=== PATIENT | female | born 1955 | race Caucasian/White ===

== ENCOUNTER 2024-11-12 09:51 | Observation (INO) ==
--- NOTE | 2024-11-12 10:40 | XRay Report ---
XR chest 1V portable CLINICAL HISTORY: weakness COMPARISON STUDY: Chest radiograph October 21, 2024. FINDINGS: Right humeral internal fixation hardware is partially imaged. Lung volumes are diminished. Left basilar opacity favors atelectasis or epicardial fat pad. There is no pneumothorax or definite p leural effusion. No consolidation is present. There is no evidence for pulmonary edema. Cardiomediast inal silhouette is stable allowing for hypoventilatory study. IMPRESSION: 1. No acute cardiopulmonary findings. 2. Low lung volumes. ACT 112: Negative or not required by law. Electronically signed by: Khai Duffy M.D. 11/12/2024 10:39 AM
[2024-11-12] MEDS: OPTIRAY 320 100ml IV ONE (11:08)
--- NOTE | 2024-11-12 11:23 | CT Scan Report ---
CT head/brain wo con CLINICAL HISTORY: altered. TECHNIQUE: Multiple axial CT images of the head were obtained without contrast. A dose lowering tech nique was utilized adhering to the principles of ALARA. COMPARISON: None FINDINGS: There is mild motion artifact. No intracranial hemorrhage seen. No mass effect, midline jhoan ft, or hydrocephalus. No skull fracture seen. There is a small mucous retention cyst in the right max illary sinus. Otherwise the visualized paranasal sinuses and mastoid air cells are clear. IMPRESSION: No acute findings. ACT 112: Negative or not required by law. The above report was generated using voice recognition software. It may contain grammatical, syntax o r spelling errors. Electronically signed by: Gio Damon M.D. 11/12/2024 11:21 AM
--- NOTE | 2024-11-12 11:27 | CT Scan Report ---
CT lumbar spine w con CLINICAL HISTORY: fall, back pain COMPARISON STUDY: None FINDINGS: There is motion artifact. Posterior metallic fusion at L4-5 shows no gross hardware complic ation. There is diffuse degenerative disc disease most severe at L2-3. There is mild retrolisthesis o f L2 on 3. There is grade 1 anterolisthesis of L5 on S1. No fracture seen. There is mild right convex lumbar scoliosis. IMPRESSION: No lumbar spine fracture seen. ACT 112: Negative or not required by law. Electronically signed by: Gio Damon M.D. 11/12/2024 11:25 AM
--- NOTE | 2024-11-12 11:34 | CT Scan Report ---
ABDOMEN AND PELVIS CT WITH IV CONTRAST CT DOSE: 2085 HISTORY: abd pain TECHNIQUE: Multiaxial CT images of the abdomen and pelvis were performed following the IV administrat ion of 90 cc of Optiray, A dose lowering technique was utilized adhering to the principles of ALARA. COMPARISON STUDY: None FINDINGS: There is mild dependent atelectasis in the lung bases. ABDOMEN: There are a few scattered small cysts in the liver. Gallbladder is not visualized. Spleen, a nd adrenal glands are unremarkable. Kidneys show no hydronephrosis or calculi. There is a small exoph ytic cyst posterior lateral left kidney. There is a small cystic finding measuring 1.2 cm at the ante rior pancreatic neck. Otherwise the pancreas is unremarkable. There are mild atherosclerotic calcific ations. No abdominal aortic aneurysm. Pelvis: Uterus and adnexa are unremarkable. Urinary bladder is mildly distended. There is mild retain ed stool. No significant colonic diverticulosis or acute diverticulitis seen. No bowel inflammation o r obstruction. No free fluid, free air, or abscess. No enlarged adenopathy. Osseous structures: There is osteopenia. No acute osseous findings. IMPRESSION: 1. No acute findings. 2. Small cystic finding at the pancreatic neck likely represents pancreatic cyst or intraductal papil galo mucinous tumor. Follow-up abdominal CT recommended in 6-12 months. ACT 112: Positive. There are findings on this exam that require communication between the performing entity and the patient following Patient Test Result Information Act ([place] Act 112) guidelines. The above report was generated using voice recognition software. It may contain grammatical, syntax o r spelling errors. Electronically signed by: Gio Damon M.D. 11/12/2024 11:31 AM
[2024-11-12 11:37] LABS: Base Excess VBG 2.4 mEq/L; HCO3 VBG 30 mmol/L; Oxygen Saturation VBG < 60.0 %; PCO2 VBG 58 mmHg (38-50); PO2 VBG 29 mmHg; pH VBG 7.32 (7.36-7.41)
[2024-11-12 11:45] LABS: Basophils # (auto) 0.02 K/uL (0.00-0.20); Basophils % (auto) 0.2 %; Eosinophils # (auto) 0.01 K/uL (0.00-0.50); Eosinophils % (auto) 0.1 %; Hematocrit (blood only) 39.3 % (37.0-47.0); Hemoglobin 12.9 g/dl (12.0-16.0); Immature Granulocytes # (auto) 0.05 K/uL (0.01-0.20); Immature Granulocytes % (auto) 0.5 %; Lymphocytes # (auto) 0.86 K/uL (1.20-3.40); Lymphocytes % (auto) 8.9 %; Mean Corpuscular Hemoglobin 29.8 pg (25.0-34.0); Mean Corpuscular Hgb Conc 32.8 g/dL (32.0-36.0); Mean Corpuscular Volume 90.8 fL (80.0-100.0); Mean Platelet Volume 11.4 fL (9.4-12.4); Monocytes # (auto) 0.65 K/uL (0.11-0.59); Monocytes % (auto) 6.7 %; Neutrophils # (auto) 8.05 K/uL (1.40-6.50); Neutrophils % (auto) 83.6 %; Platelet Count 208 K/uL (130-400); RDW Coefficient of Variation 13.3 % (11.5-14.5); RDW Standard Deviation 43.5 fL (36.4-46.3); Red Blood Count 4.33 M/uL (4.20-5.40); White Blood Count 9.64 K/ul (4.8-10.8)
--- NOTE | 2024-11-12 11:56 | XRay Report ---
XR pelvis 1-2V routine, XR femur LT 2V routine CLINICAL HISTORY: fall COMPARISON: None FINDINGS: No fracture or dislocation seen at the pelvis or hips. No fracture or dislocation seen at the left femur. There is a small area of patchy sclerosis at the proximal left tibia which likely rep resents low-grade chondroid lesion or old bone infarction. IMPRESSION: No fracture seen. ACT 112: Negative or not required by law. Electronically signed by: Gio Damon M.D. 11/12/2024 11:55 AM
[2024-11-12 12:07] LABS: Albumin Globulin Ratio 1.3 (0.9-2); Albumin Level 3.6 gm/dl (3.4-5.0); BUN Creatinine Ratio 18.9 (10-20); Bilirubin,Total 1.2 mg/dl (0.2-1.0); Calcium 9.3 mg/dl (8.6-10.3); Creatinine Clr Calc Pharmacy 47.4 ml/min; Globulin 2.7 gm/dl (2.5-4.0); Magnesium 1.6 mg/dl (1.7-2.4); Potassium 3.5 mmol/L (3.5-5.1); Total Protein 6.3 gm/dl (6.0-8.3)
[2024-11-12 12:11] LABS: Troponin I High Sensitivity 13.7 pg/ml (0-14)
--- NOTE | 2024-11-12 12:11 | Emergency Department Note ---
Impression & Plan Altered mental status, Hypomagnesemia, Acute dehydration, Acute UTI, Fall, Elevated lactic acid level ED Provider Note NAME: DEB ZAMUDIO AGE: 69 SEX: F : 1955 ARRIVES VIA: Walk-In INFORMANT: [Patient][] ED PROVIDER(S): [Dav Stewart MD] CHIEF COMPLAINT: Altered mental state HISTORY OF PRESENT ILLNESS: The patient is a 69-year-old female who presents to the ER from the surgical center for an altered mental state. The patient was to have lumbar spinal surgery today but, when she arrived, she was confused and there was concern for her ability to undergo the surgery. She was referred to the ER. The patient apparently did have a UTI a few weeks ago, this was treated. The noticed that her urine was very dark though this morning when she first went to the bathroom. The has noticed some confusion and some agitation at times the last few days. Things were worse today. The patient did fall several weeks ago. She still has bruising to the left thigh from the fall although, she has been able to ambulate with a walker. PMHx/PSHx/Social Hx: See Below PHYSICAL EXAM: GENERAL: Patient is in no acute distress. HEENT: No acute trauma, normocephalic atraumatic, mucous membranes dry, no nasal congestion. NECK: No stridor, no adenopathy, no meningismus, trachea is midline. LUNGS: Clear to auscultation bilaterally, no wheeze, no rhonchi, breath sounds equal. HEART: Without murmurs gallops or rubs, regular rate and rhythm. ABDOMEN: Soft, tender over the mid low abdomen, no distention, no peritonitis. EXTREMITIES: No cyanosis, full range of motion of all the joints without pain or difficulty. There is older contusion to the left thigh. NEUROLOGIC: Awake and alert, no acute motor or sensory deficits, no focal weakness. Somewhat agitated. SKIN: No jaundice, no diaphoresis. DIFFERENTIAL DIAGNOSIS: Intracranial bleeding, UTI, dehydration, electrolyte imbalance, CO2 retention, liver or renal failure, medication reaction, among others. EMERGENCY DEPARTMENT PROCEDURES: MEDICAL DECISION MAKING: There is no leukocytosis or concerning anemia. There is a normal platelet count. VBG does show a subtle respiratory acidosis but nothing of serious note. There was an elevation in the creatinine but this appears at baseline looking back at previous testing. Magnesium was low at 1.6. Lactic acid level was elevated which would indicate dehydration/potential sepsis. No worrisome liver enzyme elevation. The patient appeared to be in a euthyroid state. ECG showed a sinus rhythm, no ischemia or dysrhythmia. Cardiac enzyme testing x 1 is not consistent with acute cardiac injury. Urinalysis did show findings of infection. Urine tox was positive for opiates as well as benzodiazepines. Alcohol level was undetectable. Respiratory bio fire was negative. Chest film did not show pneumonia or CHF. Brain CT showed no acute bleed or mass effect. CT of the abdomen pelvis did not show any acute intra-abdominal process, no acute surgical process. Lumbar spine CT did not show any acute fracture. Films of the pelvis and left femur were performed, no fracture seen. Patient was clinically dehydrated and presented confused. She received IV saline for hydration. She was given IV magnesium and IV ceftriaxone as antibiotic coverage. The patient is clearly in need of a hospital stay. She is confused, likely from a combination of her UTI, dehydration and medication use. She is not safe for discharge home. I spoke with the patient and case management, the on-call hospitalist was consulted. Prior/Outside records/notes reviewed: Today's surgical note describing her presentation, their concerns and the ED referral. ECG per my interpretation: Indication was altered mental state. The ECG shows a normal sinus rhythm with a rate of 92. There is some nonspecific ST change. There is no ST elevation, no PVCs. The QTc is 482. Continuous Cardiac Monitoring per my interpretation: An order was placed for continuous cardiac monitoring. The monitor shows a rate of 103 with sinus tachycardia. Imaging/x-ray results per my interpretation: Chest x-ray does not show pneumonia or CHF. There is a poor inspiratory effort. Pelvis and left femur films do not show fracture. Chronic Medical/Social conditions affecting care: Advanced age. Care/Management discussed with: Case management, the on-call hospitalist. Level of care consideration(s): After review of the information above and other included data: --I believe the patient requires escalation of care to admission Critical Care Note: I have personally spent 51 minutes of critical care time in the direct management of this patient. This includes bedside care, interpretation of diagnostic studies, and testing, discussion with consultants, patient, and family members, and other required patient management activities. This 51 minutes is in excess of all separately billable procedures. DISPOSITION: Admission Past Med/Surg History Problem List (Updated 11/12/24 @ 16:06 by Dav Stewart MD) Elevated lactic acid level (Acute) Fall (Acute) Acute UTI (Acute) Acute dehydration (Acute) Hypomagnesemia (Acute) Altered mental status (Acute) Hypomagnesemia Lactic acid acidosis UTI (urinary tract infection) Encephalopathy acute Encounter for pre-operative examination Medical History Arthritis Fibromyalgia History of anesthesia reaction (2017) combative, confused x days after lumbar sx Depression Acid reflux controlled, stable per pt Parkinson disease possible - currently being evaluated by [facility] History of stroke 4-5 yrs ago incidental finding on scan, pt was unaware- [facility] - denies residual Sleep apnea CPAP Hx of ulcerative colitis remission x 18 years Anxiety Surgical History History of bilateral tubal ligation History of lumbar fusion (11/2016) L4-L5 History of open reduction and internal fixation (ORIF) procedure right arm x 2 Hx of cholecystectomy Hx of colonoscopy Hx of vein stripping left and right Social History Smoking Status: Never smoker Second Hand Exposure: No; Do You Dip or Chew Tobacco: No; Hx Alcohol Use: No Hx Substance Use: No Preferred Language: Thai Communication Ability: Effective Densitometer Reader Required: No Beliefs That Will Affect Care: None Current Living Situation: Spouse Feels Safe at Home: Yes Assistive Devices: Cane, CPAP, Denture - Upper, Glasses and Walker Allergies Allergies Allergy/AdvReac Type Severity Reaction Status Date / Time morphine AdvReac Unknown Agitated Verified 11/12/24 08:34 Home Meds Home Medications Medication Instructions Recorded Confirmed alprazolam 0.25 mg tablet (Xanax) 0.25 mg PO BID 10/14/24 11/12/24 cholecalciferol (vitamin D3) 125 125 mcg PO DAILY 10/14/24 11/12/24 mcg (5,000 unit) tablet (Vitamin D3) cyanocobalamin (vitamin B-12) 1,000 mcg PO DAILY 10/14/24 11/12/24 1,000 mcg tablet (Vitamin B-12) escitalopram oxalate 20 mg tablet 20 mg PO QAM 10/14/24 11/12/24 (Lexapro) furosemide 20 mg tablet (Lasix) 20 mg PO QAM 10/14/24 11/12/24 omega 6-euo-gub-fish oil 1,000 mg 1 cap PO DAILY 10/14/24 11/12/24 (120 mg-180 mg) capsule (Fish Oil) omeprazole 20 mg tablet,delayed 20 mg PO QAM 10/14/24 11/12/24 release pregabalin 150 mg capsule 150 mg PO BID 10/14/24 11/12/24 Results & Data (ED) Vital Signs Vital Signs - 24 hr 11/12/24 10:06 11/12/24 10:18 11/12/24 10:18 Temperature 36.6 C Temperature Source Oral Pulse Rate 96 H Pulse Rate [Apical] 96 H Respiratory Rate 17 23 Respiratory Effort / Characteristics Non-Labored Spontaneous Respiratory Depth Normal Respiratory Pattern Regular Blood Pressure 124/95 Blood Pressure [Left Arm] 124/95 Blood Pressure Mean 104 Blood Pressure Mean [Left Arm] 104 Pulse Oximetry 91 93 93 Oxygen Delivery Method Nasal Cannula Nasal Cannula Nasal Cannula Oxygen Flow Rate 2 2 2 Sepsis Recent Fever Within 48 Hours No Sepsis New/Unexplained Change in Mental Status No Sepsis Action Taken by Nursing No Action Required 11/12/24 10:35 11/12/24 10:35 11/12/24 12:17 Temperature Temperature Source Pulse Rate 103 H 106 H Pulse Rate [Apical] 89 Respiratory Rate 13 20 Respiratory Effort / Characteristics Respiratory Depth Respiratory Pattern Blood Pressure Blood Pressure [Left Arm] 118/79 Blood Pressure Mean Blood Pressure Mean [Left Arm] 92 Pulse Oximetry 94 96 Oxygen Delivery Method Nasal Cannula Nasal Cannula Oxygen Flow Rate 2 2 Sepsis Recent Fever Within 48 Hours Sepsis New/Unexplained Change in Mental Status Sepsis Action Taken by Nursing 11/12/24 14:14 11/12/24 14:29 Temperature Temperature Source Pulse Rate 83 Pulse Rate [Apical] 78 Respiratory Rate 15 Respiratory Effort / Characteristics Respiratory Depth Respiratory Pattern Blood Pressure Blood Pressure [Left Arm] 124/81 Blood Pressure Mean Blood Pressure Mean [Left Arm] 95 Pulse Oximetry 96 Oxygen Delivery Method Nasal Cannula Oxygen Flow Rate Sepsis Recent Fever Within 48 Hours Sepsis New/Unexplained Change in Mental Status Sepsis Action Taken by [facility] Medications Current Medication List: was personally reviewed by me Laboratory Data Attestation: I reviewed the patient's lab results. 11/12/24 11:25 11/12/24 11:25 Lab Results 11/12/24 11/12/24 11/12/24 Range/Units 11:25 11:35 12:40 WBC 9.64 (4.8-10.8) K/ul RBC 4.33 (4.20-5.40) M/uL Hgb 12.9 (12.0-16.0) g/dl Hct 39.3 (37.0-47.0) % MCV 90.8 (80.0-100.0) fL MCH 29.8 (25.0-34.0) pg MCHC 32.8 (32.0-36.0) g/dL RDW Std Deviation 43.5 (36.4-46.3) fL RDW Coeff of Angelita 13.3 (11.5-14.5) % Plt Count 208 (130-400) K/uL MPV 11.4 (9.4-12.4) fL Immature Gran % (Auto) 0.5 % Neut % (Auto) 83.6 % Lymph % (Auto) 8.9 % [place] % (Auto) 6.7 % Eos % (Auto) 0.1 % Baso % (Auto) 0.2 % Neut # (Auto) 8.05 H (1.40-6.50) K/uL Lymph # (Auto) 0.86 L (1.20-3.40) K/uL [place] # (Auto) 0.65 H (0.11-0.59) K/uL Eos # (Auto) 0.01 (0.00-0.50) K/uL Baso # (Auto) 0.02 (0.00-0.20) K/uL Immature Gran # (Auto) 0.05 (0.01-0.20) K/uL VBG pH 7.32 L (7.36-7.41) VBG pCO2 58 H (38-50) mmHg VBG pO2 29 mmHg VBG HCO3 30 mmol/L VBG O2 Saturation < 60.0 % VBG Base Excess 2.4 mEq/L Sodium 140 (136-145) mmol/L Potassium 3.5 (3.5-5.1) mmol/L Chloride 98 (98-107) mmol/L Carbon Dioxide 30 (21-32) mmol/L Anion Gap 12 H (3-11) BUN 24 H (6-23) mg/dl Creatinine 1.27 H (0.6-1.2) mg/dl Est Cr Clr Drug Dosing 47.4 ml/min eGFR 45.49 BUN/Creatinine Ratio 18.9 (10-20) Glucose 130 H (70-99(Fasting)) mg/dl Lactate 2.8 H* (0.4-2.0) mmol/L Calcium 9.3 (8.6-10.3) mg/dl Magnesium 1.6 L (1.7-2.4) mg/dl Total Bilirubin 1.2 H (0.2-1.0) mg/dl AST 14 (13-39) U/L ALT 7 (7-52) U/L Alkaline Phosphatase 78 (34-104) U/L Ammonia 21.0 (18-72) umol/L Troponin I High Sens 13.7 (0-14) pg/ml Total Protein 6.3 (6.0-8.3) gm/dl Albumin 3.6 (3.4-5.0) gm/dl Globulin 2.7 (2.5-4.0) gm/dl Albumin/Globulin Ratio 1.3 (0.9-2) TSH 0.683 (0.300-4.500) uIu/ml Urine Color Dark Yellow Urine Appearance Cloudy A (Clear) Urine pH 6.0 (4.5-7.5) Ur Specific [place] 1.030 (1.000-1.030) Urine Protein Trace H (Negative) Urine Glucose (UA) Negative (Negative) Urine Ketones 2+ H (Negative) Urine Blood 1+ H (Negative) Urine Nitrite Negative (Negative) Urine Bilirubin Negative (Negative) Urine Urobilinogen Negative (Negative) Ur Leukocyte Esterase 3+ H (Negative) Urine WBC (Auto) >50 H (0-5) /hpf Urine RBC (Auto) 6-10 H (0-2) /hpf U Hyaline Cast (Auto) 0-2 (0-2) /lpf U Epithel Cells (Auto) 0-2 (0-2) /hpf Urine Bacteria (Auto) 4+ H (None Seen) Urine Opiates Screen Pos H (Neg) Ur Methadone, Qual Neg (Neg) Urine Fentanyl Screen Neg (Neg) Urine Barbiturates Neg (Neg) Ur Phencyclidine (PCP) Neg (Neg) U Amphetamin/Meth Scrn Neg (Neg) MDMA (Ecstasy) Screen Neg (Neg) U Benzodiazepines Scrn Pos H (Neg) Ur Cocaine Metabolite Neg (Neg) U Marijuana (THC) Screen Neg (Neg) Ethyl Alcohol mg/dL < 10.0 (<10.0) mg/dl Adenovirus (PCR) Not Detected (NotDetected) B. pertussis DNA (PCR) Not Detected (NotDetected) B.parapertussis DNA PCR Not Detected (NotDetected) C. pneumoniae DNA (PCR) Not Detected (NotDetected) Coronavirus OC43 (PCR) Not Detected (NotDetected) Coronavirus HKU1 (PCR) Not Detected (NotDetected) Coronavirus 229E (PCR) Not Detected (NotDetected) SARS-CoV-2 (PCR) Not Detected (NotDetected) Coronavirus NL63 (PCR) Not Detected (NotDetected) Human Metapneumovir PCR Not Detected (NotDetected) Influenza Type A (PCR) Not Detected (NotDetected) Influenza Type B (PCR) Not Detected (NotDetected) M. pneumoniae (PCR) Not Detected (NotDetected) Parainfluenza 1 (PCR) Not Detected (NotDetected) Parainfluenza 2 (PCR) Not Detected (NotDetected) Parainfluenza 3 (PCR) Not Detected (NotDetected) Parainfluenza 4 (PCR) Not Detected (NotDetected) RSV (PCR) Not Detected (NotDetected) Entero/Rhino (PCR) Not Detected (NotDetected) 11/12/24 Range/Units 14:29 WBC (4.8-10.8) K/ul RBC (4.20-5.40) M/uL Hgb (12.0-16.0) g/dl Hct (37.0-47.0) % MCV (80.0-100.0) fL MCH (25.0-34.0) pg MCHC (32.0-36.0) g/dL RDW Std Deviation (36.4-46.3) fL RDW Coeff of Angelita (11.5-14.5) % Plt Count (130-400) K/uL MPV (9.4-12.4) fL Immature Gran % (Auto) % Neut % (Auto) % Lymph % (Auto) % [place] % (Auto) % Eos % (Auto) % Baso % (Auto) % Neut # (Auto) (1.40-6.50) K/uL Lymph # (Auto) (1.20-3.40) K/uL [place] # (Auto) (0.11-0.59) K/uL Eos # (Auto) (0.00-0.50) K/uL Baso # (Auto) (0.00-0.20) K/uL Immature Gran # (Auto) (0.01-0.20) K/uL VBG pH (7.36-7.41) VBG pCO2 (38-50) mmHg VBG pO2 mmHg VBG HCO3 mmol/L VBG O2 Saturation % VBG Base Excess mEq/L Sodium (136-145) mmol/L Potassium (3.5-5.1) mmol/L Chloride (98-107) mmol/L Carbon Dioxide (21-32) mmol/L Anion Gap (3-11) BUN (6-23) mg/dl Creatinine (0.6-1.2) mg/dl Est Cr Clr Drug Dosing ml/min eGFR BUN/Creatinine Ratio (10-20) Glucose (70-99(Fasting)) mg/dl Lactate 3.4 H* (0.4-2.0) mmol/L Calcium (8.6-10.3) mg/dl Magnesium (1.7-2.4) mg/dl Total Bilirubin (0.2-1.0) mg/dl AST (13-39) U/L ALT (7-52) U/L Alkaline Phosphatase (34-104) U/L Ammonia (18-72) umol/L Troponin I High Sens (0-14) pg/ml Total Protein (6.0-8.3) gm/dl Albumin (3.4-5.0) gm/dl Globulin (2.5-4.0) gm/dl Albumin/Globulin Ratio (0.9-2) TSH (0.300-4.500) uIu/ml Urine Color Urine Appearance (Clear) Urine pH (4.5-7.5) Ur Specific [place] (1.000-1.030) Urine Protein (Negative) Urine Glucose (UA) (Negative) Urine Ketones (Negative) Urine Blood (Negative) Urine Nitrite (Negative) Urine Bilirubin (Negative) Urine Urobilinogen (Negative) Ur Leukocyte Esterase (Negative) Urine WBC (Auto) (0-5) /hpf Urine RBC (Auto) (0-2) /hpf U Hyaline Cast (Auto) (0-2) /lpf U Epithel Cells (Auto) (0-2) /hpf Urine Bacteria (Auto) (None Seen) Urine Opiates Screen (Neg) Ur Methadone, Qual (Neg) Urine Fentanyl Screen (Neg) Urine Barbiturates (Neg) Ur Phencyclidine (PCP) (Neg) U Amphetamin/Meth Scrn (Neg) MDMA (Ecstasy) Screen (Neg) U Benzodiazepines Scrn (Neg) Ur Cocaine Metabolite (Neg) U Marijuana (THC) Screen (Neg) Ethyl Alcohol mg/dL (<10.0) mg/dl Adenovirus (PCR) (NotDetected) B. pertussis DNA (PCR) (NotDetected) B.parapertussis DNA PCR (NotDetected) C. pneumoniae DNA (PCR) (NotDetected) Coronavirus OC43 (PCR) (NotDetected) Coronavirus HKU1 (PCR) (NotDetected) Coronavirus 229E (PCR) (NotDetected) SARS-CoV-2 (PCR) (NotDetected) Coronavirus NL63 (PCR) (NotDetected) Human Metapneumovir PCR (NotDetected) Influenza Type A (PCR) (NotDetected) Influenza Type B (PCR) (NotDetected) M. pneumoniae (PCR) (NotDetected) Parainfluenza 1 (PCR) (NotDetected) Parainfluenza 2 (PCR) (NotDetected) Parainfluenza 3 (PCR) (NotDetected) Parainfluenza 4 (PCR) (NotDetected) RSV (PCR) (NotDetected) Entero/Rhino (PCR) (NotDetected) Administered Medications Discontinued Medications Sodium Chloride (Nss) 1,000 mls @ 999 mls/hr IV .[id number] ONE Stop: 11/12/24 11:17 Last Admin: 11/12/24 12:49 Dose: 999 mls/hr Documented By: CORIE Ceftriaxone Sodium (Rocephin) 2,000 mg in 50 mls @ 100 mls/hr IV NOW STA Stop: 11/12/24 12:13 Last Infusion: 11/12/24 13:37 Dose: Infused Documented By: Admin: 11/12/24 12:49 Dose: 100 mls/hr Documented By: CORIE Magnesium Sulfate/Dextrose (Magnesium Sulfate / D5w) 1 gm in 100 mls @ 100 mls/hr IV NOW STA Stop: 11/12/24 13:16 Last Infusion: 11/12/24 14:40 Dose: Infused Documented By: Admin: 11/12/24 13:37 Dose: 100 mls/hr Documented By: CORIE Ioversol (Optiray 320 100ml) 94 ml IV ONCE ONE Stop: 11/12/24 11:09 Last Admin: 11/12/24 11:08 Dose: 94 ml Documented By: EDK Imaging Data Radiologist's Impression: Chest X-Ray 11/12/24 10:18 XR chest 1V portable CLINICAL HISTORY: weakness COMPARISON STUDY: Chest radiograph October 21, 2024. FINDINGS: Right humeral internal fixation hardware is partially imaged. Lung volumes are diminished. Left basilar opacity favors atelectasis or epicardial fat pad. There is no pneumothorax or definite pleural effusion. No consolidation is present. There is no evidence for pulmonary edema. Cardiomediastinal silhouette is stable allowing for hypoventilatory study. IMPRESSION: 1. No acute cardiopulmonary findings. 2. Low lung volumes. ACT 112: Negative or not required by law. Electronically signed by: Khai Duffy M.D. 11/12/2024 10:[address] 11/12/24 10:18 CT head/brain wo con CLINICAL HISTORY: altered. TECHNIQUE: Multiple axial CT images of the head were obtained without contrast. A dose lowering technique was utilized adhering to the principles of ALARA. COMPARISON: None FINDINGS: There is mild motion artifact. No intracranial hemorrhage seen. No mass effect, midline shift, or hydrocephalus. No skull fracture seen. There is a small mucous retention cyst in the right maxillary sinus. Otherwise the visualized paranasal sinuses and mastoid air cells are clear. IMPRESSION: No acute findings. ACT 112: Negative or not required by law. The above report was generated using voice recognition software. It may contain grammatical, syntax or spelling errors. Electronically signed by: Gio Damon M.D. 11/12/2024 11:21 AM Abdomen/Pelvis CT 11/12/24 10:[address] WITH IV CONTRAST CT DOSE: 2085 HISTORY: abd pain TECHNIQUE: Multiaxial CT images of the abdomen and pelvis were performed following the IV administration of 90 cc of Optiray, A dose lowering technique was utilized adhering to the principles of ALARA. COMPARISON STUDY: None FINDINGS: There is mild dependent atelectasis in the lung bases. ABDOMEN: There are a few scattered small cysts in the liver. Gallbladder is not visualized. Spleen, and adrenal glands are unremarkable. Kidneys show no hydronephrosis or calculi. There is a small exophytic cyst posterior lateral left kidney. There is a small cystic finding measuring 1.2 cm at the anterior pancreatic neck. Otherwise the pancreas is unremarkable. There are mild atherosclerotic calcifications. No abdominal aortic aneurysm. Pelvis: Uterus and adnexa are unremarkable. Urinary bladder is mildly distended. There is mild retained stool. No significant colonic diverticulosis or acute diverticulitis seen. No bowel inflammation or obstruction. No free fluid, free air, or abscess. No enlarged adenopathy. Osseous structures: There is osteopenia. No acute osseous findings. IMPRESSION: 1. No acute findings. 2. Small cystic finding at the pancreatic neck likely represents pancreatic cyst or intraductal papillary mucinous tumor. Follow-up abdominal CT recommended in 6-12 months. ACT 112: Positive. There are findings on this exam that require communication between the performing entity and the patient following Patient Test Result Information Act ([place] Act 112) guidelines. The above report was generated using voice recognition software. It may contain grammatical, syntax or spelling errors. Electronically signed by: Gio Damon M.D. 11/12/2024 11:31 AM Femur X-Ray 11/12/24 10:38 XR pelvis 1-2V routine, XR femur LT 2V routine CLINICAL HISTORY: fall COMPARISON: None FINDINGS: No fracture or dislocation seen at the pelvis or hips. No fracture or dislocation seen at the left femur. There is a small area of patchy sclerosis at the proximal left tibia which likely represents low-grade chondroid lesion or old bone infarction. IMPRESSION: No fracture seen. ACT 112: Negative or not required by law. Electronically signed by: Gio Damon M.D. 11/12/2024 11:[address] 11/12/24 10:38 CT lumbar spine w con CLINICAL HISTORY: fall, back pain COMPARISON STUDY: None FINDINGS: There is motion artifact. Posterior metallic fusion at L4-5 shows no gross hardware complication. There is diffuse degenerative disc disease most severe at L2-3. There is mild retrolisthesis of L2 on 3. There is grade 1 anterolisthesis of L5 on S1. No fracture seen. There is mild right convex lumbar scoliosis. IMPRESSION: No lumbar spine fracture seen. ACT 112: Negative or not required by law. Electronically signed by: Gio Damon M.D. 11/12/2024 11:25 AM Pelvis X-Ray 11/12/24 10:38 XR pelvis 1-2V routine, XR femur LT 2V routine CLINICAL HISTORY: fall COMPARISON: None FINDINGS: No fracture or dislocation seen at the pelvis or hips. No fracture or dislocation seen at the left femur. There is a small area of patchy sclerosis at the proximal left tibia which likely represents low-grade chondroid lesion or old bone infarction. IMPRESSION: No fracture seen. ACT 112: Negative or not required by law. Electronically signed by: Gio Damon M.D. 11/12/2024 11:55 AM Discharge Plan Visit Data Chief Complaint: Altered Mental Status Stated Complaint: SAME DAY PT ED Provider: Dav Stewart Discharge Problem: Altered mental status, Hypomagnesemia, Acute dehydration, Acute UTI, Fall, Elevated lactic acid level Patient Disposition: Admitted As Inpatient Condition: Fair Forms Stand Alone Forms: [facility] Prescriptions Prescriptions: No Action cyanocobalamin (vitamin B-12) [Vitamin B-12] 1,000 mcg Tablet 1,000 mcg PO DAILY Rx Instructions: Unable to verify OTC meds at this date/time. alprazolam [Xanax] 0.25 mg Tablet 0.25 mg PO BID furosemide [Lasix] 20 mg Tablet 20 mg PO QAM escitalopram oxalate [Lexapro] 20 mg Tablet 20 mg PO QAM pregabalin 150 mg Capsule 150 mg PO BID omeprazole 20 mg Tablet,Delayed Release (Dr/Ec) 20 mg PO QAM cholecalciferol (vitamin D3) [Vitamin D3] 125 mcg (5,000 unit) Tablet 125 mcg PO DAILY Rx Instructions: Unable to verify OTC meds at this date/time. omega 9-pna-wzd-fish oil [Fish Oil] 1,000 (120-180) mg Capsule 1 cap PO DAILY Rx Instructions: Unable to verify OTC meds at this date/time. Referrals Referrals: Ricky Laguna MD [Primary Care Provider] - Discharge Problem: Altered mental status Qualifiers: Altered mental status type: disorientation Qualified Code(s): R41.0 - Disorientation, unspecified Fall Qualifiers: Encounter type: initial encounter Qualified Code(s): W19.XXXA - Unspecified fall, initial encounter
[2024-11-12 12:20] LABS: Thyroid Stimulating Hormone 0.683 uIu/ml (0.300-4.500)
[2024-11-12 12:36] LABS: Adenovirus PCR Not Detected (NotDetected); Bordetella parapertussis PCR Not Detected (NotDetected); Bordetella pertussis PCR Not Detected (NotDetected); Chlamydia pneumoniae PCR Not Detected (NotDetected); Coronavirus 229E PCR Not Detected (NotDetected); Coronavirus CoV-2 (COVID19)PCR Not Detected (NotDetected); Coronavirus HKU1 PCR Not Detected (NotDetected); Coronavirus NL63 PCR Not Detected (NotDetected); Coronavirus OC43PCR Not Detected (NotDetected); Human Metapneumovirus PCR Not Detected (NotDetected); Influenza A PCR Not Detected (NotDetected); Influenza B PCR Not Detected (NotDetected); Mycoplasma pneumoniae PCR Not Detected (NotDetected); Parainfluenza Virus 1 PCR Not Detected (NotDetected); Parainfluenza Virus 2 PCR Not Detected (NotDetected); Parainfluenza Virus 3 PCR Not Detected (NotDetected); Parainfluenza Virus 4 PCR Not Detected (NotDetected); Respiratory Syncytial VirusPCR Not Detected (NotDetected); Rhinovirus/Enterovirus PCR Not Detected (NotDetected)
[2024-11-12] MEDS: cefTRIAXone SODIUM 2,000 MG/50 ML BAG IV STA (12:49)
[2024-11-12] MEDS: SODIUM CHLORIDE 0.9% 1,000 ML IV ONE ×2 (12:49→16:38)
[2024-11-12 12:59] LABS: Appearance Urine Cloudy (Clear); Bacteria Urine Automated 4+ (None Seen); Bilirubin Urine Negative (Negative); Blood Urine 1+ (Negative); Cast Urine Automated 0-2 /lpf (0-2); Color Urine Dark Yellow; Epithelial Cell Urine Auto 0-2 /hpf (0-2); Glucose Urine UA Negative (Negative); Ketones Urine 2+ (Negative); Leukocyte Esterase Urine 3+ (Negative); Nitrite Urine Negative (Negative); Protein Urine Trace (Negative); Urobilinogen Urine Negative (Negative); WBC Urine Automated >50 /hpf (0-5)
[2024-11-12] MEDS: MAGNESIUM SULFATE / D5W 1 GM/100 ML BAG IV STA (13:37)
[2024-11-12 14:08] LABS: Amphetamines+Metham, Urine Neg (Neg); Barbiturates, Urine Neg (Neg); Benzodiazepine, Urine Pos (Neg); Cocaine, Urine Neg (Neg); Fentanyl, Urine Neg (Neg); MDMA (Ecstacy), Urine Neg (Neg); Marijuana, Urine Neg (Neg); Methadone, Urine Neg (Neg); Opiate, Urine Pos (Neg); Phencyclidine, Urine Neg (Neg)
--- NOTE | 2024-11-12 14:18 | History & Physical Report ---
Date of Service November 12, 2024 Assessment & Plan (1) UTI (urinary tract infection): Plan: Acute presenting with altered mental status and grossly infected appearing UA - Place in observation to med/surg - Diet - regular diet as tolerated - VS per unit protocol - Continue empiric IV ceftriaxone 2g daily, next dose 11/13 @ 0900 - Urine culture ordered and pending, follow results and tailor abx therapy accordingly - mIVF with NSS at 80 ml/hr x 24 hours - May need to consider PT/OT eval - OOB w/ assistance as she is a fall risk (2) Encephalopathy acute: Plan: Acute, suspect metabolic encephalopathy in the setting of acute UTI - Treat infection as noted above (3) Lactic acid acidosis: Plan: Acute in setting of acute infection - NSS bolus 1L wide open then maintenance at rate of 80 ml/hr x 24 hours - F/u lactate level - Follow VSS - currently stable (4) Hypomagnesemia: Plan: Acute - Mag level 1.6, replaced in ER with mag sulfate 1g IV x1 - Repeat level in AM Plan ALONSO- chronic - CPAP ordered for overnight Depression- continue lexapro Fibromyalgia - continue lyrica Anxiety- continue xanax GERD- continue PPI, changed to protonix per hospital formulary DVT ppx - Lovenox AM labs ordered including cbc, cmp, and mag level. Above plan of care has been d/w Dr. Ocampo who will also see and evaluate this patient. Further orders to be implemented as clinically warranted by attending. History of Present Illness Chief Complaint: Increased confusion, foul smelling urine Primary Care Provider: Ricky Laguna MD Harmony is a 69 yo F with a pmhx of depression, anxiety, fibromyalgia, memory loss, HTN, GERD, UC and ALONSO who presents to the ER today from [facility] as she initially presented today for planned surgical back procedure with Dr. Nugent, however, when she arrived she was increasingly confused. Anesthesia assessed the patient and noted that she was mildly tachycardic and tachypneic. She was requiring supplemental oxygen which was new for her, although she does have a history of "sleep-related hypoxia." She had sustained a mechanical fall about 10 days ago for which she she never really had a formal work up for. Reportedly she was trying to take the dog out on her own when she fell, according to her . No LOC and did not strike her head. She was also recently been treated for a UTI 3 weeks ago and completed a course of antibiotics for that. noted this AM that her urine was very dark and foul smelling, she has also been increasingly confused over the last couple of days and this is how she presents when she has a UTI. No reported fevers or dysuria according to her . During her time in the ED, she was increasingly agitated and at times combative, but is now resting comfortably. Her work up demonstrated a normal wbc count without shift. No fever and VS are stable. She had extensive radiographs to evaluate her due to recent fall that did no demonstrate any evidence of acute fractures. Her UA appears grossly infected. UDS + for benzos and opiates. According to her , she took a Tramadol tablet last night that is about 4 years old from a previous injury. Her lactate is elevated at 2.8 and repeat is higher at 3.4. She received 1L of NSS at a dose of ceftriaxone and has been referred to hospital medicine team for admission. Allergies Allergy/AdvReac Type Severity Reaction Status Date / Time morphine AdvReac Unknown Agitated Verified 11/12/24 08:34 Home Medications Medication Instructions Recorded Confirmed Type alprazolam 0.25 mg tablet (Xanax) 0.25 mg PO BID 10/14/24 11/12/24 History cholecalciferol (vitamin D3) 125 125 mcg PO DAILY 10/14/24 11/12/24 History mcg (5,000 unit) tablet (Vitamin D3) cyanocobalamin (vitamin B-12) 1,000 mcg PO DAILY 10/14/24 11/12/24 History 1,000 mcg tablet (Vitamin B-12) escitalopram oxalate 20 mg tablet 20 mg PO QAM 10/14/24 11/12/24 History (Lexapro) furosemide 20 mg tablet (Lasix) 20 mg PO QAM 10/14/24 11/12/24 History omega 6-fic-dcu-fish oil 1,000 mg 1 cap PO DAILY 10/14/24 11/12/24 History (120 mg-180 mg) capsule (Fish Oil) omeprazole 20 mg tablet,delayed 20 mg PO QAM 10/14/24 11/12/24 History release pregabalin 150 mg capsule 150 mg PO BID 10/14/24 11/12/24 History Past Med/Surg History Problem List (Updated 11/12/24 @ 17:52 by Background Janette) Elevated lactic acid level (Acute) Fall (Acute) Acute UTI (Acute) Acute dehydration (Acute) Hypomagnesemia (Acute) Altered mental status (Acute) Hypomagnesemia Lactic acid acidosis UTI (urinary tract infection) Encephalopathy acute Encounter for pre-operative examination Medical History Arthritis Fibromyalgia History of anesthesia reaction (2017) combative, confused x days after lumbar sx Depression Acid reflux controlled, stable per pt Parkinson disease possible - currently being evaluated by [facility] History of stroke 4-5 yrs ago incidental finding on scan, pt was unaware- [facility] - denies residual Sleep apnea CPAP Hx of ulcerative colitis remission x 18 years Anxiety Surgical History History of bilateral tubal ligation History of lumbar fusion (11/2016) L4-L5 History of open reduction and internal fixation (ORIF) procedure right arm x 2 Hx of cholecystectomy Hx of colonoscopy Hx of vein stripping left and right Social History Smoking Status: Never smoker Second Hand Exposure: No; Do You Dip or Chew Tobacco: No; Hx Alcohol Use: No Hx Substance Use: No Preferred Language: Puerto [place]ican Communication Ability: Effective Pelt Grader Required: No Beliefs That Will Affect Care: None Current Living Situation: Spouse Other Information That Helps Us Care for You: No Feels Safe at Home: Yes Safety Concerns: Feels Safe At This Time Assistive Devices: Glasses and Walker Review of Systems 2 Review of Systems: All systems reviewed and are unremarkable except as noted in HPI and below. Denies fever, chills, fatigue, headache, nasal congestion, sore throat, cough, chest pain, shortness of breath, palpitations, orthopnea, PND, abdominal pain, n/v/d, constipation, dysuria, hematuria, frequency, back pain, joint pain or swelling, easy bruising or bleeding, skin lesions or rashes. Physical Exam 2 Physical Exam: GENERAL: 69 yo morbidly obese older WF. No distress but is currently sleeping. EYES: EOMI. PERRLA. Anicteric. HENT: Moist mucous membranes. No cervical lymphadenopathy. LUNGS: Clear to auscultation bilaterally. No accessory muscle use. No W/R/R. CARDIOVASCULAR: Regular rate and rhythm. No M/G/R. No JVD. ABDOMEN: Soft, obese, non-distended. No palpable masses. Bowel sounds normoactive x 4 quad. EXTREMITIES: No edema. Non-tender. Peripheral pulses +2/4. NEUROLOGIC: No focal neurological deficits. CN II-XII grossly intact. PSYCH: calm SKIN: Warm, dry, intact. No rashes or lesions. Results & Data Results & Data Vital Signs (Past 12 Hours) Vital Signs Temp Pulse Pulse Resp BP BP Pulse Ox 11/12/24 12:17 89 20 118/79 96 11/12/24 10:35 106 H 11/12/24 10:35 103 H 13 94 11/12/24 10:18 96 H 23 124/95 93 11/12/24 10:18 93 11/12/24 10:06 36.6 C 96 H 17 124/95 91 O2 Del Method O2 Flow Rate 11/12/24 12:17 Nasal Cannula 2 11/12/24 10:35 11/12/24 10:35 Nasal Cannula 2 11/12/24 10:18 Nasal Cannula 2 11/12/24 10:18 Nasal Cannula 2 11/12/24 10:06 Nasal Cannula 2 Laboratory Results 11/12/24 11:25 11/12/24 11:25 Diagnostic Findings Chest X-Ray 11/12/24 10:18 XR chest 1V portable CLINICAL HISTORY: weakness COMPARISON STUDY: Chest radiograph October 21, 2024. FINDINGS: Right humeral internal fixation hardware is partially imaged. Lung volumes are diminished. Left basilar opacity favors atelectasis or epicardial fat pad. There is no pneumothorax or definite pleural effusion. No consolidation is present. There is no evidence for pulmonary edema. Cardiomediastinal silhouette is stable allowing for hypoventilatory study. IMPRESSION: 1. No acute cardiopulmonary findings. 2. Low lung volumes. ACT 112: Negative or not required by law. Electronically signed by: Khai Duffy M.D. 11/12/2024 10:[address] 11/12/24 10:18 CT head/brain wo con CLINICAL HISTORY: altered. TECHNIQUE: Multiple axial CT images of the head were obtained without contrast. A dose lowering technique was utilized adhering to the principles of ALARA. COMPARISON: None FINDINGS: There is mild motion artifact. No intracranial hemorrhage seen. No mass effect, midline shift, or hydrocephalus. No skull fracture seen. There is a small mucous retention cyst in the right maxillary sinus. Otherwise the visualized paranasal sinuses and mastoid air cells are clear. IMPRESSION: No acute findings. ACT 112: Negative or not required by law. The above report was generated using voice recognition software. It may contain grammatical, syntax or spelling errors. Electronically signed by: Gio Damon M.D. 11/12/2024 11:21 AM Abdomen/Pelvis CT 11/12/24 10:[address] WITH IV CONTRAST CT DOSE: 2085 HISTORY: abd pain TECHNIQUE: Multiaxial CT images of the abdomen and pelvis were performed following the IV administration of 90 cc of Optiray, A dose lowering technique was utilized adhering to the principles of ALARA. COMPARISON STUDY: None FINDINGS: There is mild dependent atelectasis in the lung bases. ABDOMEN: There are a few scattered small cysts in the liver. Gallbladder is not visualized. Spleen, and adrenal glands are unremarkable. Kidneys show no hydronephrosis or calculi. There is a small exophytic cyst posterior lateral left kidney. There is a small cystic finding measuring 1.2 cm at the anterior pancreatic neck. Otherwise the pancreas is unremarkable. There are mild atherosclerotic calcifications. No abdominal aortic aneurysm. Pelvis: Uterus and adnexa are unremarkable. Urinary bladder is mildly distended. There is mild retained stool. No significant colonic diverticulosis or acute diverticulitis seen. No bowel inflammation or obstruction. No free fluid, free air, or abscess. No enlarged adenopathy. Osseous structures: There is osteopenia. No acute osseous findings. IMPRESSION: 1. No acute findings. 2. Small cystic finding at the pancreatic neck likely represents pancreatic cyst or intraductal papillary mucinous tumor. Follow-up abdominal CT recommended in 6-12 months. ACT 112: Positive. There are findings on this exam that require communication between the performing entity and the patient following Patient Test Result Information Act ([place] Act 112) guidelines. The above report was generated using voice recognition software. It may contain grammatical, syntax or spelling errors. Electronically signed by: Gio Damon M.D. 11/12/2024 11:31 AM Femur X-Ray 11/12/24 10:38 XR pelvis 1-2V routine, XR femur LT 2V routine CLINICAL HISTORY: fall COMPARISON: None FINDINGS: No fracture or dislocation seen at the pelvis or hips. No fracture or dislocation seen at the left femur. There is a small area of patchy sclerosis at the proximal left tibia which likely represents low-grade chondroid lesion or old bone infarction. IMPRESSION: No fracture seen. ACT 112: Negative or not required by law. Electronically signed by: Gio Damon M.D. 11/12/2024 11:[address] 11/12/24 10:38 CT lumbar spine w con CLINICAL HISTORY: fall, back pain COMPARISON STUDY: None FINDINGS: There is motion artifact. Posterior metallic fusion at L4-5 shows no gross hardware complication. There is diffuse degenerative disc disease most severe at L2-3. There is mild retrolisthesis of L2 on 3. There is grade 1 anterolisthesis of L5 on S1. No fracture seen. There is mild right convex lumbar scoliosis. IMPRESSION: No lumbar spine fracture seen. ACT 112: Negative or not required by law. Electronically signed by: Gio Damon M.D. 11/12/2024 11:25 AM Pelvis X-Ray 11/12/24 10:38 XR pelvis 1-2V routine, XR femur LT 2V routine CLINICAL HISTORY: fall COMPARISON: None FINDINGS: No fracture or dislocation seen at the pelvis or hips. No fracture or dislocation seen at the left femur. There is a small area of patchy sclerosis at the proximal left tibia which likely represents low-grade chondroid lesion or old bone infarction. IMPRESSION: No fracture seen. ACT 112: Negative or not required by law. Electronically signed by: Gio Damon M.D. 11/12/2024 11:55 AM Code Status & VTE Plan Code Status DNR/DNI - confirmed by Supervising Physician Co-Signing Physician Notes I personally saw and examined the patient. I independently reviewed the labs, EKG, imaging, problem list, medication list, past medical history and family history. I verified all cordero points and agree with Ashtyn Moody PA-C with the following exceptions and/or additions: 69-year-old female presents to the ER from preop for possible back surgery due to urinary symptoms, tachycardia and hypoxia with concern for UTI sepsis. She is not on oxygen at home but does wear CPAP at night. Reportedly taking some old tramadol for her back pain and appears more tired than usual. When seen patient appears much more awake than what was described earlier in the day. Unclear why Lucas catheter was inserted but no mention of retention. No new back pain or CVA in the last 1 to 2 weeks. Reportedly O/E HS RRR, no murmurs, Chest CTAB, Abdo SNT, power 5/5 b/l LE, no numbness b/l LE A/P #UTI - WBC 9.64, lactate elevated but not hypotensive and < 4 therefore does not meet criteria for fluid bolus, agree with IV ceftriaxone, failed nitroglycerin # Mild respiratory failure with hypercapnia Suspect this was due to more lethargic state earlier in the day while not using her CPAP. CPAP HS, wean O2 as able #back pain due to have back surgery today but will need to be delayed, PT/OT, acetaminophen 1st line, tramadol 2nd line, encourage mobilization PG Care Time/CCT Total # of Minutes Spent Total Time Spent with Patient: Total time spent is greater than 50% in coordination of care (as documented) at patient's floor/unit and/or counseling patient: 80 minutes Coding Level of Care Code 18852 INT INP/OBS CARE 3/75MIN Diagnoses UTI (urinary tract infection) N39.0 Encephalopathy acute G93.40 Lactic acid acidosis E87.20 Hypomagnesemia E83.42
[2024-11-12] MEDS ORDERED: ONDANSETRON INJ 2 MG/ML 2 ML VIAL IV PRN (17:53)
[2024-11-12] MEDS ORDERED: MELATONIN 3 MG TAB PO PRN (17:53)
[2024-11-12] MEDS ORDERED: ALUMINUM/MAGNESIUM SUSP 30 ML UDC PO PRN (17:53)
[2024-11-12] MEDS ORDERED: MAGNESIUM HYDROXIDE SUSP 30 ML UDC PO PRN (17:53)
[2024-11-12] MEDS: SODIUM CHLORIDE 0.9% 1,000 ML IV SCH (18:28)
[2024-11-12] MEDS ORDERED: traMADol HCL 50 MG TABLET PO PRN ×2 (18:44)
--- NOTE | 2024-11-12 20:35 | Electrocardiogram Report ---
Test Reason : Blood Pressure : */* mmHG Vent. Rate : 92 BPM Atrial Rate : 92 BPM P-R Int : 150 ms QRS Dur : 74 ms QT Int : 390 ms P-R-T Axes : -13 -24 -55 degrees QTcB Int : 482 ms Normal sinus rhythm Nonspecific ST and T wave abnormality Abnormal ECG When compared with ECG of 21-Oct-2024 14:05, Vent. rate has increased by 32 bpm Inverted T waves have replaced nonspecific T wave abnormality in Lateral leads Confirmed by Solitario Jacobsen ([id number]) on 11/12/2024 8:35:36 PM Referred By: REFERRED SELF Confirmed By: Solitario Jacobsen
[2024-11-12] MEDS: PREGABALIN 150 MG CAP PO SCH (21:23)
[2024-11-12] MEDS: ALPRAZolam 0.25 MG TABLET PO SCH (21:23)
[2024-11-13 07:05] LABS: Basophils # (auto) 0.02 K/uL (0.00-0.20); Basophils % (auto) 0.3 %; Eosinophils % (auto) 1.6 %; Hematocrit (blood only) 35.3 % (37.0-47.0); Hemoglobin 11.5 g/dl (12.0-16.0); Immature Granulocytes # (auto) 0.04 K/uL (0.01-0.20); Immature Granulocytes % (auto) 0.6 %; Lymphocytes # (auto) 0.91 K/uL (1.20-3.40); Lymphocytes % (auto) 14.8 %; Mean Corpuscular Hemoglobin 29.6 pg (25.0-34.0); Mean Corpuscular Hgb Conc 32.6 g/dL (32.0-36.0); Mean Corpuscular Volume 90.7 fL (80.0-100.0); Mean Platelet Volume 11.5 fL (9.4-12.4); Monocytes # (auto) 0.59 K/uL (0.11-0.59); Monocytes % (auto) 9.6 %; Neutrophils % (auto) 73.1 %; Platelet Count 174 K/uL (130-400); RDW Coefficient of Variation 13.4 % (11.5-14.5); RDW Standard Deviation 43.7 fL (36.4-46.3); Red Blood Count 3.89 M/uL (4.20-5.40); White Blood Count 6.16 K/ul (4.8-10.8)
[2024-11-13 07:40] LABS: Albumin Globulin Ratio 1.4 (0.9-2); Albumin Level 3.4 gm/dl (3.4-5.0); BUN Creatinine Ratio 23.4 (10-20); Bilirubin,Total 0.9 mg/dl (0.2-1.0); Calcium 8.9 mg/dl (8.6-10.3); Creatinine Clr Calc Pharmacy 78.1 ml/min; Globulin 2.5 gm/dl (2.5-4.0); Magnesium 1.8 mg/dl (1.7-2.4); Potassium 3.4 mmol/L (3.5-5.1); Total Protein 5.9 gm/dl (6.0-8.3)
[2024-11-13] MEDS ORDERED: PHENAZOPYRIDINE HCL 200 MG TAB PO PRN (08:07)
[2024-11-13 08:39] LABS: Base Excess VBG -0.6 mEq/L; HCO3 VBG 28 mmol/L; Oxygen Saturation VBG < 60.0 %; PCO2 VBG 62 mmHg (38-50); PO2 VBG 27 mmHg; pH VBG 7.26 (7.36-7.41)
[2024-11-13] MEDS: cefTRIAXone SODIUM 2,000 MG/50 ML BAG IV SCH (08:41)
[2024-11-13] MEDS: POTASSIUM CHLORIDE CRTAB 20 MEQ TABCR PO STA (08:42)
[2024-11-13] MEDS: ENOXAPARIN INJ 40 MG/0.4 ML SYR SQ SCH (08:42)
[2024-11-13] MEDS: FUROSEMIDE 20 MG TAB PO SCH (08:44)
[2024-11-13] MEDS: CYANOCOBALAMIN (B-12) 500 MCG TABLET PO SCH (08:44)
[2024-11-13] MEDS: ESCITALOPRAM OXALATE 20 MG TAB PO SCH (08:44)
[2024-11-13] MEDS: CHOLECALCIFEROL 125 MCG (5,000 UNITS) TAB PO SCH (08:45)
[2024-11-13] MEDS: PANTOprazole 40 MG TAB PO SCH (08:45)
[2024-11-13] MEDS ORDERED: CYANOCOBALAMIN 1000 MCG/ML VIAL IM SCH (09:00)
[2024-11-13] MEDS: ACETAMINOPHEN 325 MG TAB PO PRN (11:46)
--- NOTE | 2024-11-13 14:14 | Hospitalist Progress Note ---
Date of Service November 13, 2024 Assessment & Plan (1) UTI (urinary tract infection): Plan: Acute presenting with altered mental status and grossly infected appearing UA - Urine culture growing E. coli, sensitivities pending - remove martinez catheter, unclear why this was (2) Encephalopathy acute: Plan: Appears to be multifactorial (hypercapnia, iatrogenic in setting of UTI) Hypercapnia actually worse today suspect due to oxygen supplementation - need to stop this as long as O2 sats > 88% notes more lethargic since starting Xanax in the morning therefore switches back to just at night Reduce Lyrica to 100 mg p.o. BID (3) Lactic acid acidosis: Plan: Now resolved with IV fluids We will stop furosemide (4) Hypomagnesemia: Plan: Repeat Mg level 1.8, repeat levels in AM (5) Acute respiratory acidosis: Plan: Repeat VBG worse this morning. Hopefully she will stop retaining as sedating medications are reduced and she improves from urinary perspective Plan ALONSO - chronic - CPAP ordered for overnight Depression- continue Lexapro Fibromyalgia - reduce dose of Lyrica Anxiety- Switch to Xanax only at night GERD- continue PPI, changed to Protonix per hospital formulary VTE prophylaxis - Lovenox Diet - regular Disposition - continue observation to med/surg Admission and Anticipated Discharge Date Admission Date: November 12, 2024 Anticipated date of discharge: 11/14/24 Subjective Patient remains lethargic. No pain. No required any acetaminophen or Tylenol overnight. Frequently falling asleep during encounter. Physical Exam Constitutional: WD/WN, vitals as above Respiratory: normal respiratory effort, lungs clear to auscultation Cardiovascular: RRR, no murmur, no edema Results & Data Results & Data Vital Signs (Past 12 Hours) Vital Signs Temp Pulse Pulse Resp BP Pulse Ox O2 Del Method 11/13/24 07:32 36.2 C L 71 18 137/74 98 Nasal Cannula 11/13/24 07:25 Room Air 11/13/24 04:29 79 15 94 O2 Flow Rate 11/13/24 07:32 1.5 11/13/24 07:25 11/13/24 04:29 PG Care Time/CCT Total # of Minutes Spent Total Time Spent with Patient: Total time spent is greater than 50% in coordination of care (as documented) at patient's floor/unit and/or counseling patient: Coding Level of Care Code 36343 SUB INP/OBS CARE 350MIN Diagnoses UTI (urinary tract infection) N39.0 Encephalopathy acute G93.40 Lactic acid acidosis E87.20 Hypomagnesemia E83.42 Acute respiratory acidosis J96.02
[2024-11-13 15:15] LABS: Base Excess VBG 1.2 mEq/L; HCO3 VBG 28 mmol/L; Oxygen Saturation VBG < 60.0 %; PCO2 VBG 55 mmHg (38-50); PO2 VBG 28 mmHg; pH VBG 7.32 (7.36-7.41)
[2024-11-13] MEDS: ALPRAZolam 0.25 MG TABLET PO SCH (20:43)
[2024-11-13] MEDS: PREGABALIN 100 MG CAP PO SCH (20:43)
[2024-11-14 04:56] VITALS: RESP 18
[2024-11-14 05:43] LABS: Allen Test Pos (Pos)
[2024-11-14 05:46] LABS: Base Excess ABG 3.4 mEq/L (-9-1.8); HCO3 ABG 29 mmol/L (19-24); Oxygen Saturation ABG 97.1 % (90-95); PCO2 ABG 44 mmHg (35-46); PO2 ABG 75 mmHg (80-95); pH ABG 7.42 (7.35-7.45)
[2024-11-14 07:41] LABS: Calcium 9.1 mg/dl (8.6-10.3); Magnesium 1.6 mg/dl (1.7-2.4); Potassium 3.1 mmol/L (3.5-5.1)
[2024-11-14 07:46] LABS: BUN Creatinine Ratio 22.4 (10-20); Creatinine Clr Calc Pharmacy 89.8 ml/min
[2024-11-14] MEDS: POTASSIUM CHLORIDE CRTAB 20 MEQ TABCR PO STA (09:29)
[2024-11-14] MEDS: POLYETHYLENE (MIRALAX) 17 GM PACK PO STA (09:30)
[2024-11-14] MEDS: MAGNESIUM SULFATE / D5W 1 GM/100 ML BAG IV SCH (10:18)
--- NOTE | 2024-11-14 10:51 | XRay Report ---
XR foot RT min 3V routine CLINICAL HISTORY: base 5th MT pain COMPARISON: None FINDINGS: Alignment of the tarsometatarsal joints is anatomic. A transverse lucency within the proxi mal shaft of the second metatarsal is likely artifactual. There is a subtle small lucency within the distal lateral aspect of the cuboid. In addition, there is a mildly displaced intraarticular fracture of the medial base of the right second proximal phalanx. No additional fractures are identified. IMPRESSION: 1. Age indeterminate mildly displaced intra-articular fracture of the base of the right second proxim al phalanx. 2. Probable acute nondisplaced intra-articular fracture within the distal lateral cuboid. 3. Equivocal fracture within the proximal shaft of the second metatarsal. This is likely artifactual. However, a CT of the right foot without contrast is recommended to exclude additional midfoot fractu res. Anatomic alignment of the tarsometatarsal joints. ACT 112: Negative or not required by law. Electronically signed by: Khai Duffy M.D. 11/14/2024 10:48 AM
[2024-11-14 14:59] VITALS: BP 98/66; PULSE 98; TEMP 98.4; O2SAT 96
--- NOTE | 2024-11-14 15:43 | XRay Report ---
Left knee: 2 views. No fracture or dislocation. No suprapatellar effusion. Small bone infarct in the proximal tibia. Impression No acute process. Electronically signed by Radha Ashford 11-14-2024 3:42 PM
--- NOTE | 2024-11-14 15:44 | XRay Report ---
Right knee: 2 views. No fracture or dislocation. Moderate narrowing the patellofemoral compartment with patellar spurs. No suprapatellar effusion. No joint space narrowing the lateral of the medial compartment. Impression No acute process. Electronically signed by Radha Ashford 11-14-2024 3:43 PM
--- NOTE | 2024-11-14 15:45 | XRay Report ---
Right ankle: 3 views. No fracture or dislocation. Ankle mortise is preserved. Subtalar joint appears unremarkable. Impression No acute process. Electronically signed by Radha Ashford 11-14-2024 3:44 PM
--- NOTE | 2024-11-14 16:59 | Discharge Summary ---
Discharge Summary Date of Service November 14, 2024 Principal Dx & Hospital Course #1 = Principal Diagnosis (1) UTI (urinary tract infection): (2) Encephalopathy acute: (3) Lactic acid acidosis: (4) Hypomagnesemia: (5) Acute respiratory acidosis: (6) Fracture of proximal phalanx of toe of right foot: (7) Cuboid fracture: Oswald Harmony Manzanares is a 69-year-old female observed at [facility] from November 12 - due to confusion and lethargy prior to her back operation day surgery. She was diagnosed with multifactorial acute encephalopathy due to CO2 retention (VBG pH 7.26, PV CO2 62), sedating medications (Xanax, Lyrica, tramadol) and urine tract infection (E. coli resistant to ampicillin only). She was treated with intravenous ceftriaxone for urine tract infection and will switch to 5 days of Bactrim as an outpatient. Xanax was switched to just at night to avoid sedation during the daytime. Lyrica was decreased to 100 mg p.o. BID during her inpatient mission however this was increased back to 150 on discharge as she appeared much more alert after 2 days of treatment for a urine tract infection. She appeared dehydrated with elevated BUN of 24. Therefore Lasix was discontinued and she was treated with intravenous fluids to good effect. Lasix has been discontinued on discharge due to hypotension and dehydration. She was also noted to have right foot pain and x-ray showed right second proxima l phalanx and probable acute nondisplaced intra-articular fracture within the distal lateral cuboid. This likely happened 1 to 2 weeks prior to admission. It was discussed with orthopedics and that she was placed in a walking boot and should follow-up with orthopedics as an outpatient for ongoing management. She was advised to need medical clearance again prior to subsequent back surgery. Notes For Next Care Provider Consider reducing Lyrica if having ongoing sedation Consider stopping Xanax if patient unable given obstructive sleep apnea with hypercapnia Will need medical clearance again prior to back operation Recommend medical consultation during her back operation and making sure she brings her CPAP Avoid opiates (she took all tramadol prior to admission) to avoid further sedation Need referral for orthopedics for ongoing management of her second proximal phalanx and probable acute nondisplaced intra-articular fracture of the distal lateral cuboid Her magnesium was minimally reduced during her inpatient admission, IV replacement was given, consider repeating level as an outpatient Medication Changes From Visit Xanax decreased to just at night to reduce sedation during the daytime Bactrim prescribed for UTI for 5 days Furosemide stopped due to hypotension and dehydration Admission HPI Per Admitting Provider Harmony is a 69 yo F with a pmhx of depression, anxiety, fibromyalgia, memory loss, HTN, GERD, UC and ALONSO who presents to the ER today from [facility] as she initially presented today for planned surgical back procedure with Dr. Nugent, however, when she arrived she was increasingly confused. Anesthesia assessed the patient and noted that she was mildly tachycardic and tachypneic. She was requiring supplemental oxygen which was new for her, although she does have a history of "sleep-related hypoxia." She had sustained a mechanical fall about 10 days ago for which she she never really had a formal work up for. Reportedly she was trying to take the dog out on her own when she fell, according to her . No LOC and did not strike her head. She was also recently been treated for a UTI 3 weeks ago and completed a course of antibiotics for that. noted this AM that her urine was very dark and foul smelling, she has also been increasingly confused over the last couple of days and this is how she presents when she has a UTI. No reported fevers or dysuria according to her . During her time in the ED, she was increasingly agitated and at times combative, but is now resting comfortably. Her work up demonstrated a normal wbc count without shift. No fever and VS are stable. She had extensive radiographs to evaluate her due to recent fall that did no demonstrate any evidence of acute fractures. Her UA appears grossly infected. UDS + for benzos and opiates. According to her , she took a Tramadol tablet last night that is about 4 years old from a previous injury. Her lactate is elevated at 2.8 and repeat is higher at 3.4. She received 1L of NSS at a dose of ceftriaxone and has been referred to hospital medicine team for admission. Discharge Exam Constitutional WD/WN, vitals as above Respiratory normal respiratory effort, lungs clear to auscultation Cardiovascular RRR, no murmur, no edema Gastrointestinal (Abdomen) normal bowel sounds, soft, nontender, no hepatosplenomegaly Musculoskeletal Pain on palpation of base of fifth metatarsal and over the second proximal phalanx Pain on movement of both knees Skin Old ecchymosis of her left thigh Discharge Plan Discharge Items Patient Disposition: Home - Self-Care Reason For Visit: [facility], CONFUSION Discharge Diagnosis: UTI Right second toe fracture Probable acute non displaced fracture within distal lateral cuboid Confusion (due to sedating medications, high carbon dioxide levels, UTI) Condition on Discharge: Fair Activity: Per Instructions section Non-emergency contact: Primary Care Provider Call non-emergency contact if: you have any medication questions and your symptoms worsen Follow-up/Referrals: Ricky Laguna MD [Primary Care Provider] - Diet: Regular Addtl Attending Provider Instructions: You were observed to [facility] from November 12 - due to confusion and lethargy when you were seen at same day surgery for your back surgery. You were diagnosed with acute encephalopathy due to high carbon dioxide levels (due to sedation with sleep apnea), sedating medications and urine tract infection. You were treated with reduction in your sedating medications (Lyrica and Xanax). The tramadol you took along with your other medications likely made you sedated, you should try to avoid this. Xanax has been changed to just at night but given your sleep apnea recommend discussing stopping this completely with your outpatient providers. Lyrica was reduced during you inpatient admission but given you are now more alert as the UTI was treated will put this back to 150mg PO BID on discharge but consider reducing this in addition with your outpatient providers depending on how useful it has been for your neuropathic pain. You were treated with intravenous ceftriaxone for the urine tract infection and will switch to an additional 5 days of Bactrim as outpatient. Lasix has been discontinued due to hypotension (low blood pressure) and dehydration. You also have been having foot pain for the last week since a fall and were diagnosed with right second proximal phalanx and probable acute nondisplaced intra-articular fracture within the distal lateral cuboid. For this you were placed in a walking boot and should follow up with orthopedics for ongoing management. Continue to use your CPAP at night and while napping to avoid high carbon dioxide levels. You will need to be medically cleared again by your outpatient provider prior to receiving back surgery. Pending Studies at Discharge: No Stand-Alone Forms: [facility], Smoking Cessation Medications and DC Order Prescriptions: New sulfamethoxazole-trimethoprim [Bactrim DS] 800-160 mg tablet 1 tab PO DAILY 5 Days Qty: 5 0RF Continued cyanocobalamin (vitamin B-12) [Vitamin B-12] 1,000 mcg Tablet 1,000 mcg PO DAILY Rx Instructions: Unable to verify OTC meds at this date/time. escitalopram oxalate [Lexapro] 20 mg Tablet 20 mg PO QAM pregabalin 150 mg Capsule 150 mg PO BID omeprazole 20 mg Tablet,Delayed Release (Dr/Ec) 20 mg PO QAM cholecalciferol (vitamin D3) [Vitamin D3] 125 mcg (5,000 unit) Tablet 125 mcg PO DAILY Rx Instructions: Unable to verify OTC meds at this date/time. omega 2-cah-wqw-fish oil [Fish Oil] 1,000 (120-180) mg Capsule 1 cap PO DAILY Rx Instructions: Unable to verify OTC meds at this date/time. Changed alprazolam [Xanax] 0.25 mg Tablet 0.25 mg PO HS Qty: 0 0RF Discontinued furosemide [Lasix] 20 mg Tablet 20 mg PO QAM Discharge Orders: Discharge Order (Routine); Ordered 11/14/24 Ordered By: Abraham Vang/Other Patient Handouts: Sulfamethoxazole/Trimethoprim Oral Tablet, ED Fracture, Foot Admission Data Admit Date/Time: 11/12/24 14:35 Attending Provider: Abraham Ocampo Admit Provider: Abraham Ocampo Primary Care Provider: Ricky Laguna Other Providers: Abraham Ocampo Hospital Stay Data Consultations 11/12/24 14:12 ED Decision to Admit Stat Diagnostic Imagining Performed 11/12/24 10:18 CT head/brain wo con Stat 11/12/24 10:38 CT abd pelvis IV con only Stat CT lumbar spine w con Stat Pending Results Patient Have Any Pending Studies at Discharge: No Discharge Instructions Given to Patient (Per Discharging Provider) You were observed to [facility] from November 12 - due to confusion and lethargy when you were seen at same day surgery for your back surgery. You were diagnosed with acute encephalopathy due to high carbon dioxide levels (due to sedation with sleep apnea), sedating medications and urine tract infection. You were treated with reduction in your sedating medications (Lyrica and Xanax). The tramadol you took along with your other medications likely made you sedated, you should try to avoid this. Xanax has been changed to just at night but given your sleep apnea recommend discussing stopping this completely with your outpatient providers. Lyrica was reduced during you inpatient adm ission but given you are now more alert as the UTI was treated will put this back to 150mg PO BID on discharge but consider reducing this in addition with your outpatient providers depending on how useful it has been for your neuropathic pain. You were treated with intravenous ceftriaxone for the urine tract infection and will switch to an additional 5 days of Bactrim as outpatient. Lasix has been discontinued due to hypotension (low blood pressure) and dehydration. You also have been having foot pain for the last week since a fall and were diagnosed with right second proximal phalanx and probable acute nondisplaced intra-articular fracture within the distal lateral cuboid. For this you were placed in a walking boot and should follow up with orthopedics for ongoing management. Continue to use your CPAP at night and while napping to avoid high carbon dioxide levels. You will need to be medically cleared again by your outpatient provider prior to receiving back surgery. Total Time Total Time Spent Total Time Spent (In Minutes): 50 Coding Level of Care Code 22305 INP/OBS DISCH >30 MIN Diagnoses UTI (urinary tract infection) N39.0 Encephalopathy acute G93.40 Lactic acid acidosis E87.20 Hypomagnesemia E83.42 Acute respiratory acidosis J96.02 Fracture of proximal phalanx of toe of right foot S92.911A Cuboid fracture S92.213A
[2024-11-15 12:43] LABS: 7-Aminoclonaz, Confirm NEGATIVE ng/mL (<25); Codeine Urine 367 ng/mL (<50); Hydro-Alp Ur, GC/MS 144 ng/mL (<25); Hydrocodone Urine NEGATIVE ng/mL (<50); Hydromor Urine NEGATIVE ng/mL (<50); Hydroxyethylflurazepam, Conf NEGATIVE ng/mL (<50); Hydroxymidazolam Ur, GC/MS NEGATIVE ng/mL (<50); Hydroxytriazolam NEGATIVE ng/mL (<50); Lorazepam, Ur GC/MS NEGATIVE ng/mL (<50); Morphine Urine NEGATIVE ng/mL (<50); Nordiazepam, Confirm NEGATIVE ng/mL (<50); Norhydrocodone Conf Ur 103 ng/mL (<50); Noroxycodone Urine NEGATIVE ng/mL (<50); Oxazepam Ur, GC/MS NEGATIVE ng/mL (<50); Oxycodone Urine NEGATIVE ng/mL (<50); Oxymorph Urine NEGATIVE ng/mL (<50); Temazepam, Confirm NEGATIVE ng/mL (<50)
== END 2024-11-14 18:23 | disposition home or self-care (01) ==
LOC: ED 09:51 → EDINP 09:51 → 3N 17:53